=== PATIENT | female | born 1945 | race Caucasian/White ===

== ENCOUNTER → 2017-03-30 | Outpatient (CLI) | payer OTHER ==
[~2017-03-30] MED LIST: AMT50 PO; BACL10TA PO; CALCTAB5 PO; CHOL100027 OR; CRS10 PO; FURO20TA PO; GABA1CAP5 PO; HYD50 PO; LISI-461 PO; METH-307 PO; METO50TA7 PO; MULT-506 PO; POTA-335 PO; TRAM-10 PO; WARF2TAB PO
== END | disposition home or self-care (01) ==
LOC: C.RDSM 12:43
PROVIDERS: ATTEND Physical Medicine & Rehabilitation Sports Medicine
DX: Z96.651 Presence of right artificial knee joint (principal)

== ENCOUNTER → 2017-10-29 | Day surgery (SDC) | payer OTHER ==
[2017-10-19 13:48] VITALS: Ht 153.7 cm; Wt 88.6 kg
[~2017-10-29] VITALS: Ht 153.7 cm; Wt 88.6 kg
[~2017-10-29] MED LIST changes: +BUPIVACAINE 0.25% 2.5MG/ML PF 10 ML VIAL ONE; +CALC600T9 PO; -CALCTAB5 PO; -CHOL100027 OR; +CHOLTAB12 PO; +CMD/25 PO; -CRS10 PO; +GABA-1220 PO; -GABA1CAP5 PO; -HYD50 PO; +HYDR50TA3 PO; +IOPAMIDOL INJ 61% 15 ML VIAL ONE; +LATA0.5S OP; +LIDOCAINE HCL 1% MPF 5 ML VIAL ONE; -METH-307 PO; -METO50TA7 PO; +METO50TA8 PO; -POTA-335 PO; +POTA-639 PO; +ROSU20TA PO; -WARF2TAB PO
--- NOTE | 2017-10-29 15:11 | History & Physical Bridge - [place] ---
H&P Re-Evaluation Bridge Note: I have examined the patient, reviewed the History & Physical and in the interval since the performance of the History & Physical I have noted the following changes of clinical significance: No changes noted
--- NOTE | 2017-10-29 15:26 | [facility] Post Operative Brief Note ---
Immediate Operative Summary Operative Date October 29, 2017. Pre-Operative Diagnosis Right sacroiliitis, underlying lumbar fusion Post-Operative Diagnosis Same Procedure(s) Performed Right Sacroiliac Joint Injection Surgeon Dr. Kody Dodson Shaping Machine Operator Surgeon(s) None Estimated Blood Loss 0 Findings Consistent with Post-Op Diagnosis Specimens NA Anesthesia Type Local Complication(s) none Disposition Disposition:
[2017-10-29 15:27] VITALS: TEMP 37
--- NOTE | 2017-10-29 15:27 | Discharge Instructions ---
Discharge Instructions Date of Service October 29, 2017. Visit Reason for Visit: Post Laminectomy Syndrome, Sacroiliitis Discharge Discharge Diagnosis / Problem: low back pain Discharge Goals Goal(s): Decrease discomfort, Improve function Activity Recommendations Activity Limitations: resume your previous activity Anesthesia . Post Anesthesia Instructions: If you have had General Anesthesia or IV Sedation: * Do not drive today. * Resume driving when surgeon permits. * Do not make important decisions or sign legal documents today. * Call surgeon for: 1. Temperature elevations greater than 101 degrees F. 2. Uncontrollable pain. 3. Excessive bleeding. 4. Persistent nausea and vomiting. 5. Medication intolerance (nausea, vomiting or rash). * For nausea and vomiting use only clear liquids such as: tea, soda, bouillon until nausea subsides, then gradually increase diet as tolerated. * If you have any concerns or questions, call your surgeon's office. If physician is unavailable and it is an emergency, call 911 or go to the nearest emergency room. . Diet Recommendations Recommended Home Diet: resume previous diet Procedures Procedures Performed: Right Sacroiliac Joint Injection Pending Studies Studies pending at discharge: no Medical Emergencies . Who to Call and When: Medical Emergencies: If at any time you feel your situation is an emergency, please call 911 immediately. . Non-Emergent Contact Non-Emergency issues call your: Specialist . . "Provider Documentation" section prepared by Perfecto Dodson. .
[2017-10-29 15:48] VITALS: BP 122/77; PULSE 80; O2SAT 93
--- NOTE | 2017-10-29 20:23 | OPERATIVE REPORT ---
DATE OF OPERATION: 10/29/2017 PREOPERATIVE DIAGNOSIS: Right sacroiliitis, underlying lumbar spinal fusion. POSTOPERATIVE DIAGNOSIS: Right sacroiliitis, underlying lumbar spinal fusion. PROCEDURE: Right sacroiliac joint injection under fluoroscopic guidance. INDICATIONS: The patient is a 71-year-old white female who had followup, presented with increasing pain. She noted that the right sacroiliac joint more uncomfortable with twisting, getting out of a chair, turning. She has a prior lumbar fusion surgery done, which places increased stress upon the sacroiliac joints. PHYSICAL EXAMINATION: Pleasant female, seated comfortably. She has point tenderness to palpation of her right SI joint, positive sacral compression maneuver. No focal weakness. Negative sacral distraction maneuver with reproduction of pain moving from flexion to an extended position. CONSENT: Verbal and written consent was obtained from the patient. Risks and benefits were reviewed. Risks include, but are not limited to abscess and allergic reaction. The patient wishes to proceed. DESCRIPTION OF PROCEDURE: The patient was taken back to the special procedures room of the [facility] where he was maintained in a prone position. Backside was cleansed with Betadine x3 and a dry sterile dressing was applied. Fluoroscope was used to identify the right sacroiliac joint. The overlying skin was anesthetized with 2.5 mL of lidocaine 1% with a 25-gauge 1.5-inch needle. A 25-gauge 3.5-inch spinal needle was then directed into the joint. Isovue-300 contrast 0.25 mL was injected, which demonstrated an intra-articular pattern. She then underwent injection after negative aspiration of 40 mg Depo-Medrol and 1.5 mL of bupivacaine 0.25%. Injection was well tolerated. DISPOSITION: The patient was taken out into the discharge recovery area where she will follow up in 4 weeks' time at the [facility] office. I attest to the content of the Intraoperative Record and any orders documented therein. Any exception s are noted below.
== END | disposition home or self-care (01) ==
LOC: X.SURG 13:35
PROVIDERS: ATTEND Physical Medicine & Rehabilitation
DX: M46.1 Sacroiliitis, not elsewhere classified (principal); M43.26 Fusion of spine, lumbar region; M96.1 Postlaminectomy syndrome, not elsewhere classified; Z98.890 Other specified postprocedural states; Z79.899 Other long term (current) drug therapy